=== PATIENT | male | born 1975 | race Caucasian/White ===

== ENCOUNTER 2022-08-02 12:57 | Inpatient (IN) | payer SELFPAY ==
[2022-08-02] VITALS (8 sets, daily range): BP systolic 154–182; BP diastolic 97–105
[~2022-08-02] VITALS: Ht 165.1 cm; Wt 68.5 kg
[2022-08-02] MEDS: BLOOD SUGAR DIAGNOSTIC STRIP TEST SCH ×2 (01:28→18:15)
[~2022-08-02 12:57] MED LIST: METF-414 PO
[2022-08-02 14:27] LABS: CHLORIDE 107 mEq/L (98-107)
[2022-08-02 14:28] LABS: BASOPHILS % 0.8 % (0.0-2.0); HEMATOCRIT. 24.3 % (42.0-52.0); HEMOGLOBIN. 8.2 g/dL (14.0-18.0); LYMPHOCYTES % 8.3 % (20.0-50.0); MEAN CORPUSCULAR HEMOGLOBIN 32.2 pg (28.0-32.0); MEAN CORPUSCULAR VOLUME 95.6 fL (80.0-94.0); MONOCYTES % 7.8 % (2.0-8.0); NEUTROPHILS % 81.1 % (40.0-76.0); PLATELET 234 x1000/uL (130-400); RED BLOOD CELL COUNT 2.54 mill/uL (4.7-6.1); RED CELL DISTRIBUTION WIDTH 17.1 % (11.6-14.6)
[2022-08-02 14:31] LABS: INR 1.3; PARTIAL THROMBOPLASTIN TIME 23.5 sec (23.4-31.0); PROTHROMBIN TIME 13.8 sec (9.6-11.0)
[2022-08-02] MEDS ORDERED: INSULIN REGULAR (HUMULIN R) 300UNITS/3ML VIAL IV NR (16:00)
[2022-08-02] MEDS ORDERED: SODIUM POLYSTYRENE SULFONATE 15 G/60 ML BOT PO NR (16:00)
[2022-08-02] MEDS ORDERED: SODIUM BICARBONATE 8.4% 1 MEQ/ML 50ML SYR IV NR (16:00)
[2022-08-02] MEDS ORDERED: CALCIUM GLUCONATE 100MG/ML 10ML VIAL IV NR (16:00)
[2022-08-02] MEDS ORDERED: DEXTROSE 50% WATER 50ML SYRINGE IV NR (16:00)
[2022-08-02] MEDS ORDERED: CLONIDINE 0.2MG TABLET PO ONE (17:00)
[2022-08-02] MEDS ORDERED: MAGNESIUM/ALUMINUM HYDROXIDE/SIMETHICONE 30ML UDC PO PRN (17:15)
[2022-08-02] MEDS ORDERED: GUAIFENESIN 200MG/10ML SUGAR FREE UDC PO PRN (17:15)
[2022-08-02] MEDS: NITROGLYCERIN OINT 1GM/INCH UDPKT TD SCH (17:15)
[2022-08-02] MEDS ORDERED: ACETAMINOPHEN 325MG TABLET PO PRN ×2 (17:15)
[2022-08-02] MEDS ORDERED: DOCUSATE SODIUM 100MG CAPSULE PO PRN (17:15)
[2022-08-02] MEDS ORDERED: DEXTROSE 50% WATER 50ML SYRINGE IV PRN (17:15)
[2022-08-02] MEDS ORDERED: ONDANSETRON HCL 4MG/2ML INJ IV PRN (17:15)
[2022-08-02] MEDS ORDERED: NITROGLYCERIN 0.4MG TABLET SL SL PRN (17:15)
[2022-08-02] MEDS ORDERED: CLONIDINE 0.1MG TABLET PO PRN (17:15)
[2022-08-02] MEDS ORDERED: LABETALOL 5MG/ML SYR 20 MG/4 ML SYRINGE IV ONE (17:45)
[2022-08-02] MEDS ORDERED: INSULIN LISPRO 100 UNITS/ML SUBCUT SCH (18:20)
[2022-08-02] MEDS ORDERED: CLONIDINE 0.1MG TABLET PO ONE (18:30)
[2022-08-02] MEDS ORDERED: NITROGLYCERIN OINT 1GM/INCH UDPKT TD ONE (18:30)
[2022-08-02] MEDS ORDERED: METOPROLOL TARTRATE 25MG TABLET PO ONE (18:45)
[2022-08-02] MEDS ORDERED: SODIUM POLYSTYRENE SULFONATE 15 G/60 ML BOT PO ONE (19:00)
[2022-08-02] MEDS ORDERED: BLOOD SUGAR DIAGNOSTIC STRIP TEST ONE (19:00)
[2022-08-02] MEDS ORDERED: INSULIN REGULAR (HUMULIN R) 300UNITS/3ML VIAL IV ONE (19:00)
[2022-08-02] MEDS ORDERED: DEXTROSE 50% WATER 50ML SYRINGE IV ONE (19:00)
[2022-08-02 19:02] LABS: ETHANOL BLOOD < 10 mg/dL; HDL CHOLESTEROL 54 mg/dL (40-59); LDL CHOLESTEROL 52 mg/dL (5-100); T4 FREE 1.03 ng/dL (0.76-1.46); TOTAL IRON BINDING CAPACITY 222 ug/dL (250-450)
[2022-08-02 19:02] LABS: BG CARBOXYHEMOGLOBIN 1.3 % (0.5-1.5); BG DEOXYHEMOGLOBIN 0.3 % (0.0-5.0); BG FRACTION INSPIRED OXYGEN 100; BG HCO3 ACT 15.8 mmol/L (22.0-26.0); BG METHEMOGLOBIN 0.2 % (0.0-1.5); BG OXYGEN SATURATION 99.7 % (92.0-98.5); BG OXYHEMOGLOBIN 98.2 % (94.0-97.0); BG PCO2 29.8 mmHg (35.0-45.0); BG PH 7.343 (7.350-7.450); BG PO2 473.5 mmHg (75.0-100.0); BG SAMPLE SITE RIGHT BRACHIAL; BG TOTAL HEMOGLOBIN 7.3 g/dL (12.0-18.0); BG VENT MODE MASK - NRB
[2022-08-02 19:21] LABS: HEPATITIS B SURFACE ANTIGEN NEGATIVE
[2022-08-02 19:22] LABS: VITAMIN B12 SERUM 622 pg/mL (211-911)
[2022-08-02] MEDS ORDERED: ZOLPIDEM TARTRATE 5MG TABLET PO PRN (20:00)
[2022-08-02] MEDS: HYDRALAZINE HCL 50MG TABLET PO SCH (22:54)
[2022-08-03] MEDS: METOPROLOL TARTRATE 25MG TABLET PO SCH ×3 (01:27→21:05)
[2022-08-03] MEDS: NITROGLYCERIN OINT 1GM/INCH UDPKT TD SCH ×4 (01:48→21:50)
[2022-08-03] MEDS ORDERED: SODIUM POLYSTYRENE SULFONATE 15 G/60 ML BOT PO NR (02:30)
[2022-08-03] MEDS: ENOXAPARIN 30MG/0.3ML SYR SUBCUT SCH ×2 (03:06→18:15)
[2022-08-03] MEDS: NIFEDIPINE XL 60MG TAB PO SCH ×2 (03:12→08:56)
[2022-08-03] MEDS ORDERED: INSULIN LISPRO 100 UNITS/ML SUBCUT SCH (03:30)
[2022-08-03 03:44] VITALS: BP 120/60
[2022-08-03] MEDS ORDERED: INSULIN REGULAR (HUMULIN R) 300UNITS/3ML VIAL IV NR (03:45)
[2022-08-03 04:00] VITALS: BP 120/60
[2022-08-03] MEDS ORDERED: SPIR25TA6 MT (05:39)
[2022-08-03] MEDS: HYDRALAZINE HCL 50MG TABLET PO SCH ×3 (06:00→21:50)
[2022-08-03 06:18] LABS: EOSINOPHILS % 4.9 % (0.0-5.0); LYMPHOCYTES % 8.1 % (20.0-50.0); MEAN CORPUSCULAR HEMOGLOBIN 31.9 pg (28.0-32.0); MEAN PLATELET VOLUME 7.8 fl (7.4-10.4); MONOCYTES % 11.2 % (2.0-8.0); NEUTROPHILS % 74.8 % (40.0-76.0); PLATELET 223 x1000/uL (130-400); RED BLOOD CELL COUNT 2.24 mill/uL (4.7-6.1); RED CELL DISTRIBUTION WIDTH 16.9 % (11.6-14.6)
[2022-08-03] MEDS: INSULIN LISPRO 100 UNITS/ML SUBCUT SCH ×4 (06:20→20:31)
[2022-08-03] MEDS: BLOOD SUGAR DIAGNOSTIC STRIP TEST SCH ×4 (06:20→20:31)
[2022-08-03 06:46] LABS: HEMOGLOBIN. 7.2 g/dL (14.0-18.0)
[2022-08-03 06:47] LABS: HEMATOCRIT. 20.2 % (42.0-52.0)
[2022-08-03 07:11] LABS: CREATINE KINASE MB FRACTION 9.5 ng/mL (0.5-3.6)
[2022-08-03 08:00] VITALS: BP 96/50
[2022-08-03 08:23] LABS: CHLORIDE 96 mEq/L (98-107)
[2022-08-03 08:30] LABS: PHOSPHORUS 4.6 mg/dL (2.5-4.9)
[2022-08-03] MEDS: PANTOPRAZOLE SODIUM 40 MG/VIAL IV SCH (08:56)
[2022-08-03] MEDS: ASPIRIN 325MG EC TABLET PO SCH (08:56)
[2022-08-03] MEDS: SEVELAMER CARBONATE 800 MG TABLET PO SCH ×3 (08:56→18:15)
[2022-08-03 12:00] VITALS: BP 120/73
[2022-08-03 16:00] VITALS: BP 148/86
[2022-08-03 20:00] VITALS: BP 140/95
[2022-08-03] MEDS: IPRATROPIUM/ALBUTEROL 0.5-3(2.5)MG/3ML NEB NEB PRN (20:45)
[2022-08-03] MEDS ORDERED: EPOETIN ALFA-EPBX 4,000 UNIT/ML VIAL SUBCUT SCH (21:00)
[2022-08-04] VITALS (10 sets, daily range): BP systolic 116–185; BP diastolic 62–100
[2022-08-04] MEDS: HYDRALAZINE HCL 50MG TABLET PO SCH ×3 (05:04→20:56)
[2022-08-04] MEDS: NITROGLYCERIN OINT 1GM/INCH UDPKT TD SCH ×3 (05:04→21:04)
[2022-08-04] MEDS: INSULIN LISPRO 100 UNITS/ML SUBCUT SCH ×4 (05:40→20:57)
[2022-08-04] MEDS: BLOOD SUGAR DIAGNOSTIC STRIP TEST SCH ×4 (05:41→20:56)
[2022-08-04] MEDS: SEVELAMER CARBONATE 800 MG TABLET PO SCH ×3 (07:40→18:12)
[2022-08-04] MEDS: PANTOPRAZOLE SODIUM 40 MG/VIAL IV SCH (12:55)
[2022-08-04] MEDS: ASPIRIN 325MG EC TABLET PO SCH (12:55)
[2022-08-04] MEDS: NIFEDIPINE XL 60MG TAB PO SCH (12:59)
[2022-08-04] MEDS: METOPROLOL TARTRATE 25MG TABLET PO SCH ×2 (12:59→21:03)
[2022-08-04 17:35] LABS: BASOPHILS % 0.9 % (0.0-2.0); EOSINOPHILS % 3.4 % (0.0-5.0); LYMPHOCYTES % 9.6 % (20.0-50.0); MEAN CORPUSCULAR HEMOGLOBIN 31.6 pg (28.0-32.0); MEAN CORPUSCULAR VOLUME 92.4 fL (80.0-94.0); MONOCYTES % 14.5 % (2.0-8.0); NEUTROPHILS % 71.6 % (40.0-76.0); PLATELET 216 x1000/uL (130-400); RED BLOOD CELL COUNT 2.27 mill/uL (4.7-6.1)
[2022-08-04 17:55] LABS: HEMOGLOBIN. 7.2 g/dL (14.0-18.0)
[2022-08-04] MEDS: ENOXAPARIN 30MG/0.3ML SYR SUBCUT SCH (18:13)
[2022-08-04 18:31] LABS: PHOSPHORUS 4.3 mg/dL (2.5-4.9)
[2022-08-05] VITALS: BP 136/76
[2022-08-05 04:00] VITALS: BP 153/83
[2022-08-05] MEDS: NITROGLYCERIN OINT 1GM/INCH UDPKT TD SCH ×2 (05:41→14:00)
[2022-08-05] MEDS: HYDRALAZINE HCL 50MG TABLET PO SCH ×2 (05:42→14:00)
[2022-08-05] MEDS: BLOOD SUGAR DIAGNOSTIC STRIP TEST SCH ×2 (07:10→12:10)
[2022-08-05] MEDS: INSULIN LISPRO 100 UNITS/ML SUBCUT SCH ×2 (07:40→14:08)
[2022-08-05 08:00] VITALS: BP 169/89
[2022-08-05] MEDS: IPRATROPIUM/ALBUTEROL 0.5-3(2.5)MG/3ML NEB NEB PRN (09:14)
[2022-08-05] MEDS: PANTOPRAZOLE SODIUM 40 MG/VIAL IV SCH (09:17)
[2022-08-05] MEDS: METOPROLOL TARTRATE 25MG TABLET PO SCH (09:17)
[2022-08-05] MEDS: SEVELAMER CARBONATE 800 MG TABLET PO SCH ×2 (09:17→14:10)
[2022-08-05] MEDS: NIFEDIPINE XL 60MG TAB PO SCH (09:17)
[2022-08-05] MEDS: ASPIRIN 325MG EC TABLET PO SCH (09:17)
[2022-08-05 12:00] VITALS: BP 105/58
[2022-08-05 15:54] VITALS: BP 103/64
[2022-08-05 16:00] VITALS: BP 103/64
== END 2022-08-05 18:10 | disposition home or self-care (01) | DRG 425 ==
LOC: ER 12:57 → EDBEDREQ 17:09 → EDBEDREQTM 17:09 → ENRESERV 23:31 → 8WST 08-03 00:53
PROVIDERS: ADMIT Internal Medicine; ATTEND Internal Medicine
PROC: 5A1D70Z Performance of Urinary Filtration, Intermittent, Less than 6 Hours Per Day (ICD-10-PCS; principal; 2022-08-02)
PROC: 5A1D70Z Performance of Urinary Filtration, Intermittent, Less than 6 Hours Per Day (ICD-10-PCS; 2022-08-04)
DX: E87.5 Hyperkalemia (principal); J96.91 Respiratory failure, unspecified with hypoxia; I13.2 Hypertensive heart and chronic kidney disease with heart failure and with stage 5 chronic kidney disease, or end stage renal disease; E87.20 Acidosis, unspecified; D63.8 Anemia in other chronic diseases classified elsewhere; E83.51 Hypocalcemia; Z20.822 Contact with and (suspected) exposure to COVID-19; J90 Pleural effusion, not elsewhere classified; K70.31 Alcoholic cirrhosis of liver with ascites; N18.6 End stage renal disease; I50.30 Unspecified diastolic (congestive) heart failure; E78.5 Hyperlipidemia, unspecified; E87.1 Hypo-osmolality and hyponatremia; I16.1 Hypertensive emergency; E11.22 Type 2 diabetes mellitus with diabetic chronic kidney disease; F10.20 Alcohol dependence, uncomplicated; F19.10 Other psychoactive substance abuse, uncomplicated; F15.10 Other stimulant abuse, uncomplicated; Z99.2 Dependence on renal dialysis; Z82.49 Family history of ischemic heart disease and other diseases of the circulatory system
CPT/HCPCS: 36415; 36600; 71045; 76700; 80048; 80053; 80061; 80320; 82375; 82550; 82553; 82607; 82746; 82805; 82962; 83036; 83540; 83550; 83735; 83880; 84100; 84132; 84439; 84443; 84484; 85025; 86705; 86709; 86803; 87340; 87426; 90935; 93005; 93306; 93970; 99291; C9113; J0610; J0885; J1650; J1815; J2405; J3490; G0480